=== PATIENT | male | born 1985 | race Caucasian/White ===

== ENCOUNTER 2018-04-21 23:01 | Emergency (ER) | payer OTHER ==
[~2018-04-21] VITALS: Ht 182.9 cm; Wt 86.0 kg
[2018-04-22] MEDS ORDERED: HYDROCODONE/ACETAMINOPHEN 5/325MG TABLET PO PRN (01:45)
[2018-04-22] MEDS ORDERED: ONDANSETRON HCL 4MG TABLET PO ONE (01:45)
[2018-04-22] MEDS ORDERED: KETAMINE HCL 50 MG/ML 10ML IV ONE (04:00)
[2018-04-22] MEDS ORDERED: PROPOFOL 200MG/20ML VIAL IV ONE (04:00)
[2018-04-22 05:50] VITALS: BP 166/104
== END 2018-04-22 06:50 | disposition home or self-care (01) ==
LOC: ER 23:01
DX: S43.084A Other dislocation of right shoulder joint, initial encounter (principal); W05.1XXA Fall from non-moving nonmotorized scooter, initial encounter; Y93.89 Activity, other specified; Y92.89 Other specified places as the place of occurrence of the external cause
CPT/HCPCS: 23650; 73030; 73060; 99285; J3490; Q0162; J2704